=== PATIENT | male | born 1965 | race Caucasian/White ===

== ENCOUNTER → 2016-10-04 | Day surgery (SDC) | payer MEDICAID ==
[~2016-10-04] VITALS: Ht 182.9 cm; Wt 86.2 kg
[2016-10-04] VITALS (9 sets, daily range): BP systolic 118–147; BP diastolic 76–103
[~2016-10-04] MED LIST: Bupivacaine 0.5% Inj 30 ml vial INJ ONE; DiphenhydrAMINE 50mg/ml Inj IVP PRN; Hydromorphone 0.5mg/0.5ml inj IVP PRN; Ketorolac 30mg Inj IV PRN; Ketorolac 30mg Inj ONE; LR 1000ml 1,000 ML IVLG SCH; LR 1000ml ONE; Meperidine 25mg/ml Inj IV PRN; Midazolam 2mg/2ml Inj ONE; NKM; NS Irrig 1000ml IRRIG ONE; NS Irrig 1000ml ONE; Propofol 10mg/ml 20ml IV ONE; Sterile Water Irrig 1000ml IRRIG ONE; ceFAZolin 1gm in D5W 55ml IVP ONE; fentaNYL 100 mcg/2 mL IV ONE
--- NOTE | 2016-10-04 07:52 | Pre-Procedure Note/Attestation ---
Pre-Procedure Note/Attestation Complete Prior to Procedure Planned Procedure: right Procedure Narrative: right hydrocelectomy Attestation I attest that I discussed the nature of the procedure; its benefits; risks and complications; and alternatives (and the risks and benefits of such alternatives ), prior to the procedure, with the patient (or the patient's legal customer support representative). I attest that, if there was a reasonable possibility of needing a blood transfusion, the patient (or the patient's legal customer support representative) was given the [facility] standardized written summary, pursuant to the Davi Waldorf Blood Safety Act ([place] Health and Safety Code # 1645, as amended). I attest that I re-evaluated the patient just prior to the surgery and that there has been no change in the patient's H&P, except as documented below: Abel Lindsay MD Oct 04, 2016 07:52
--- NOTE | 2016-10-04 07:53 | Brief Operative Note ---
Immediate Post Operative Note Operative Note Procedure: right hydrocelectomy Post-op Diagnosis: same Post-op Diagnosis: same as pre-op Surgeon: Reggie Lindsay Specimen: none Complications: none Condition: stable Estimated Blood Loss: minimal Implant(s) used?: No Abel Lindsay MD Oct 04, 2016 07:53
--- NOTE | 2016-10-04 10:31 | Anethesia Preoperative Eval ---
Anesthesia Pre-op PMH/ROS General Date of Evaluation: Oct 04, 2016 Time of Evaluation: 09:50 Anesthesiologist: Hetal ASA Score: ASA 2 Mallampati Score Class I : Soft palate, uvula, fauces, pillars visible Class II: Soft palate, uvula, fauces visible Class III: Soft palate, base of uvula visible Class IV: Only hard plate visible Mallampati Classification: Class II Surgeon: Neftali Diagnosis: R hydrocele Surgical Procedure: R hydrocele repair Anesthesia History: none Family History: no anesthesia problems Allergies: Coded Allergies: No Known Allergies (Unverified , 10/03/16) Past Medical History Cardiovascular: Denies: CAD, HTN, MO, arrhythmia, other, valve dz Pulmonary: Denies: COPD, IRVIN, asthma, other Gastrointestinal/Genitourinary: Reports: GERD, Denies: CRI, ESRD, other Neurologic/Psychiatric: Denies: CVA, TIA, dementia, depression/anxiety, other Endocrine: Denies: DM, hypothyroidism, other, steroids HEENT: Denies: [place] (L), [place] (R), cataract (L), cataract (R), glaucoma, other Hematology/Immune: Denies: DVT, anemia, bleeding disorder, other Musculoskeletal/Integumentary: Denies: DDD, DJD, OA, RA, edema, other PMH Narrative: as above PSxH Narrative: Knee arthroscopy Anesthesia Pre-op Phys. Exam Physician Exam Last Vital Signs Date Time Temp Pulse Resp B/P Pulse Ox O2 Delivery O2 Flow Rate FiO2 10/04/16 07:51 97.5 75 18 127/76 98 Room Air Constitutional: NAD Neurologic: CN 2-12 intact Cardiovascular: RRR, no M/R/G Respiratory: CTA Gastrointestinal: S/NT/ND Airway Exam Mallampati Score: Class II MO: full Neck: flexible ROM: full Teeth: intact Dentures: no lower, no upper Anesthesia Pre-op A/P Labs see chart Studies Pre-op Studies: EKG - NSR Risk Assessment & Plan Assessment: ASA 2 Plan: GA with LMA Status Change Before Surgery: No Pre-Antibiotics Drug: Ancef 1gr Given Within 1 Hr of Incision: Yes Time Given: 10:05 ANITHA GREGG M.D. Oct 04, 2016 10:31
--- NOTE | 2016-10-04 11:54 | Immediate Post-Op Evaluation ---
Immediate Post-Op Evalulation Immediate Post-Op Evalulation Procedure: R Hydrocele repair Date of Evaluation: Oct 04, 2016 Time of Evaluation: 10:57 IV Fluids: 1000 Blood Products: none Estimated Blood Loss: min Urinary Output: none Blood Pressure Systolic: 136 Blood Pressure Diastolic: 72 Pulse Rate: 78 Respiratory Rate: 20 O2 Sat by Pulse Oximetry: 99 Temperature (Fahrenheit): 97.6 Pain Score (1-10): 2 Nausea: No Vomiting: No Complications none Patient Status: reacts, patent, none Hydration Status: adequate ANITHA GREGG M.D. Oct 04, 2016 11:54
--- NOTE | 2016-10-04 12:55 | 48 Hour Post Anesthesia Eval ---
Post Anesthesia Evaluation Procedure: R Hydrocele repair Date of Evaluation: Oct 04, 2016 Time of Evaluation: 12:53 Blood Pressure Systolic: 136 0: 58 Pulse Rate: 74 Respiratory Rate: 20 Temperature (Fahrenheit): 97.6 O2 Sat by Pulse Oximetry: 99 Airway: patent Nausea: No Vomiting: No Pain Intensity: 2 Hydration Status: adequate Cardiopulmonary Status: stable Mental Status/LOC: patient returned to baseline Follow-up Care/Observations: n/a Post-Anesthesia Complications: none Follow-up care needed: ready to discharge ANITHA GREGG M.D. Oct 04, 2016 12:55
--- NOTE | 2016-10-04 16:58 | Operative Note - Dictated ---
DATE OF OPERATION: 10/04/2016 PREOPERATIVE DIAGNOSIS: Right hydrocele and spermatocele. POSTOPERATIVE DIAGNOSIS: Right hydrocele and spermatocele. OPERATION: 1. Right hydrocelectomy. 2. Right spermatocelectomy. SURGEON: Abel Lindsay M.D. ANESTHESIA: General. FINDINGS: Spermatocele or hydrocele on the right testicle. INDICATIONS FOR SURGERY: The patient had a large testicle confirmed to have a fluid collection with hydrocele and separate spermatocele. Treatment options were explained in great length including all potential complications, he signed a consent. PROCEDURE IN DETAIL: The patient was brought to the operating room, placed in supine position. Prepped and draped in standard fashion. Under general anesthesia, a 3 centimeter incision was made in the right hemiscrotum and the tunica vaginalis was mobilized and then opened and hydrocele was reduced. Extra tunica vaginalis was resected and spermatocele was then resected all the way completely and sent for pathologic examination. Layers of tunica vaginalis was reapproximated behind the testicle with running 3-0 chromic suture. After that, testicle was placed back into the scrotum, hemostasis, Juanjose's fascia was closed with running 3-0 chromic suture as well and suture for the skin, scrotal support. Sponge count and instrument count was correct. The patient tolerated procedure well. No complications. Abel Lindsay M.D. DR: Arnoldo JOB#: [id number] CC:
== END | disposition home or self-care (01) ==
LOC: SUR 07:05
DX: N43.3 Hydrocele, unspecified (principal); N43.41 Spermatocele of epididymis, single; R35.1 Nocturia; R35.0 Frequency of micturition; N42.89 Other specified disorders of prostate; K21.9 Gastro-esophageal reflux disease without esophagitis
CPT/HCPCS: 54840; 55040; J0690; J1885; J2250; J2704; J3010; J3490; J7120; Z7512; 94003; 94150